=== PATIENT | male | born 1985 | race Caucasian/White ===

== ENCOUNTER 2021-04-12 16:33 | Inpatient (IN) | payer MEDICAID, SELFPAY ==
[2021-04-12 16:40] VITALS: BP 140/96; PULSE 85; RESP 18; TEMP 36.6; O2SAT 98
[2021-04-12 16:44] VITALS: BMI 22.8
--- NOTE | 2021-04-12 17:26 | PC.NURSE ---
Integumentary initial assessment: patient has bilateral tattoo sleeves on upper extremities, multiple tattoos on abdomen and chest area. One tattoo says LOVE on patient left ribs. One laceration, scabbed over on posterior back starting from mid back to above buttocks. One laceration on buttocks, scabbed over. No evidence of pressure wounds on posterior areas. States these are from when he recently had a seizure in the [place] and fell on barbed wire.
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
[2021-04-12 20:00] VITALS: BP 160/111; PULSE 74; RESP 18; TEMP 36.9; O2SAT 99
--- NOTE | 2021-04-12 20:01 | PC.NURSE ---
med nurse notified of client's b/p
[2021-04-12 21:18] VITALS: BP 160/111
[2021-04-12] MEDS: cloNIDine 0.1 mg Tablet 0.2 MG PO (21:18)
[2021-04-12] MEDS: buprenorphine-naloxone 4-1 mg Film 2 EACH SUBLINGUAL (21:19)
[2021-04-12] MEDS: gabapentin 300 mg Capsule 600 MG PO (21:19)
[2021-04-13 06:00] VITALS: BP 169/101; PULSE 62; RESP 17; TEMP 36.8; O2SAT 99
--- NOTE | 2021-04-13 06:29 | PC.NURSE ---
charge nurse notified of pt's elevated b/p
[2021-04-13 08:22] VITALS: BP 169/101
[2021-04-13] MEDS: cloNIDine 0.1 mg Tablet 0.2 MG PO ×3 (08:22→20:24)
[2021-04-13] MEDS: gabapentin 300 mg Capsule 600 MG PO ×3 (08:22→20:24)
[2021-04-13] MEDS: buprenorphine-naloxone 4-1 mg Film 2 EACH SUBLINGUAL ×2 (08:23→17:25)
[2021-04-13] MEDS: nicotine 21 mg Patch 1 PATCH TRANSDERMA (08:23)
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
--- NOTE | 2021-04-13 12:00 | NPU.GN ---
[facility] Unit Group Topic:Dice Breaker Group Activity General Mood of Group: Isaias did not attend group today. He was sleeping.
[2021-04-13] MEDS: acetaminophen 325 mg Tablet 650 MG PO (12:08)
[2021-04-13 14:00] VITALS: BP 125/75; PULSE 80; RESP 17; TEMP 36.9; O2SAT 98
[2021-04-13 16:17] VITALS: BP 125/75
[2021-04-13] MEDS: nicotine 2 mg Gum BUCCAL ×2 (17:25→21:10)
[2021-04-13] MEDS: lamoTRIgine 100 mg Tablet PO (20:24)
[2021-04-13] MEDS: trazodone 50 mg Tablet PO (21:13)
[2021-04-13 22:00] VITALS: BP 128/83; PULSE 86; RESP 18; TEMP 36.5; O2SAT 97
--- NOTE | 2021-04-14 03:52 | PC.NURSE ---
Patient came to nursing staff requesting medication to help him sleep. Trazadone was given at 2113 for sleep. Medication was effective.
[2021-04-14 06:00] VITALS: BP 115/71; PULSE 88; RESP 17; TEMP 36.6; O2SAT 98
[2021-04-14] MEDS: acetaminophen 325 mg Tablet 650 MG PO (06:36)
[2021-04-14] MEDS: nicotine 2 mg Gum BUCCAL ×2 (07:36→15:25)
[2021-04-14] MEDS: buprenorphine-naloxone 4-1 mg Film 2 EACH SUBLINGUAL ×2 (07:53→17:23)
[2021-04-14] MEDS: gabapentin 300 mg Capsule 600 MG PO ×3 (07:53→20:49)
[2021-04-14 07:54] VITALS: BP 115/71
[2021-04-14] MEDS: cloNIDine 0.1 mg Tablet 0.2 MG PO ×3 (07:54→20:48)
--- NOTE | 2021-04-14 08:12 | PC.NURSE ---
am assessment Patient is up ambulating in urena. He is alert and oriented, able to state name and day as well as month and year. He denies SI, HI, or hallucinations. Speech is clear, labile. Hr regular with pedal pulses palpated x 2, no edema noted. Lungs clear with breathing even and nonlabored. Bowel sounds active in all quads. Denies pain with urination. C/o pain in low back that is 7/10, received tylenol within last 4 hours. Skin is warm and dry.
[2021-04-14] MEDS: ibuprofen 800 mg tablet PO ×2 (08:17→08:36)
--- NOTE | 2021-04-14 11:26 | NPU.GN ---
[facility] Unit Group Topic: Thought Process General Mood of Group: Isaias did attend and participate in group. He did well and his hygiene was ok.
--- NOTE | 2021-04-14 13:42 | P.NPUPN_ITS ---
Subjective NPU Subjective: Interval history: He said that he is doing about the same. He denies any side effects from the Lamictal that he took last night. He said it might make him a little tired. His sleep was average last night. He woke up several times and does not think it was substantially different than normal. He had previously told me that trazodone gives him nightmares. He did take it last night and did not have any nightmares. He was told that it would be available if he wanted to try it again. He understands that the lamotrigine probably has not had a chance to do anything thus far. Mental Status Exam MSE Comments: This is a 35-year-old appropriate weight male who appears approximately his stated age and is in no acute distress. He is pleasant and cooperative with the evaluation. He is dressed in hospital scrubs. He has many tattoos and a full brunson. psychomotor activity is normal. Speech is at a regular rate and rhythm, normal volume, good articulation, not pressured. Alert, oriented X3 Attention and concentration appear to be normal. Memory is intact Mood is depressed. Affect is mildly dysphoric. Thought process is logical and goal-directed. Thought content: Denies auditory and visual hallucinations. No delusions or paranoia are noted. Reports suicidal ideation of wanting to hang himself. and no homicidal ideation. Fund of knowledge is average. Insight and judgment appear to be impaired. Impulse control is impaired. Cognition: Patient Appearance: Disheveled/Poor Hygiene Ability to Follow Directions: Excellent Patient Orientation (long list): Person, Place, Time and Name Comprehension Ability: No Impairment Hallucination Type: None Delusion Description: Not Present Thought Process: Appropriate Affect: Affect Description: Appropriate and Labile Behavior: Patient Behavior: Appropriate and Cooperative Speech Pattern: Appropriate and Clear Vitals/I&O/Wt Last Vital Signs Temp 97.8 F 04/14/21 06:00 Pulse 88 04/14/21 06:00 Resp 17 04/14/21 06:00 BP 115/71 04/14/21 07:54 Pulse Ox 98 04/14/21 06:00 Weight last 48 hrs Weight 68.039 kg A&P Assessment and plan (1) Anxiety: Status: Acute (2) Methamphetamine addiction: Status: Acute (3) Opiate addiction: Status: Acute (4) Marijuana abuse: Status: Acute Plan This is a 35-year-old male with a long history of drug abuse and antisocial behavior. He is unable to keep a job because of his anger problem. He now reports with suicidal ideation and homelessness. Plan: 1. Continue current medication. Gabapentin 600 mg 3 times daily Suboxone 8-2 twice daily. We will start Lamictal at 100 mg at his request he will watch carefully for a rash. 2. Continue every 15 minute checks for safety. 3. Encourage individual, group and milieu therapies. 4. Encourage sober living treatment after discharge at the highest level of care to which he is willing to commit. 5. We will monitor for safety for himself in the community prior to discharge. Involuntary Hold Information 96 Hour Hold: 96 Hour Involuntary Admission: No Attestations U Medical Necessity Statement*: Inpatient hospitalization is medically necessary and the clinically appropriate intervention at this time. We will initiate medications and make changes as indicated. Coding Level of Care Code Acute Conference Reservationist for Chelsey Gonsalez Diagnoses Anxiety F41.9 Methamphetamine addiction F15.20 Opiate addiction F11.20 Marijuana abuse F12.10
[2021-04-14 14:00] VITALS: BP 117/68; PULSE 78; RESP 18; TEMP 36.7; O2SAT 96
[2021-04-14 15:24] VITALS: BP 117/68
[2021-04-14] MEDS: hyDROXYzine 25 mg Capsule 50 MG PO (15:55)
[2021-04-14] MEDS: nicotine 4 mg lozenge MUCOUS MEM (17:23)
[2021-04-14] MEDS: trazodone 50 mg Tablet PO (20:49)
[2021-04-14] MEDS: lamoTRIgine 100 mg Tablet PO (20:49)
[2021-04-14 22:00] VITALS: BP 121/79; PULSE 76; RESP 16; TEMP 36.9; O2SAT 95
--- NOTE | 2021-04-15 03:00 | PC.NURSE ---
2048 Patient requested something to help him sleep. Trazadone 50mg po given. Medication was effective as the patient has been able to rest.
[2021-04-15 06:00] VITALS: BP 114/70; PULSE 80; RESP 18; TEMP 36.7; O2SAT 94
[2021-04-15 08:40] VITALS: BP 114/70
[2021-04-15] MEDS: buprenorphine-naloxone 4-1 mg Film 2 EACH SUBLINGUAL (08:40)
[2021-04-15] MEDS: cloNIDine 0.1 mg Tablet 0.2 MG PO ×3 (08:40→20:53)
[2021-04-15] MEDS: gabapentin 300 mg Capsule 600 MG PO ×3 (08:40→20:53)
[2021-04-15] MEDS: nicotine 21 mg Patch 1 PATCH TRANSDERMA (09:18)
[2021-04-15] MEDS: nicotine 4 mg lozenge MUCOUS MEM ×2 (09:18→15:56)
--- NOTE | 2021-04-15 10:58 | W.PM.NPUPNS ---
Subjective NPU Subjective: Interval history: He said that he is doing about the same. He denies any side effects from the Lamictal that he took last night. He said it might make him a little tired. His slept better the last 2 nights with the Lamictal and trazodone. He has been having more pain and asked about increasing the Suboxone. He was told that we could not do that but may be spreading around more would help more for the pain. He is adamant that he wants to stay clean. He does not want to go to a long term because they are drug infested. He has not been able to get in touch with his . His mother would give him the number. Mental Status Exam MSE Comments: This is a 35-year-old appropriate weight male who appears approximately his stated age and is in no acute distress. He is pleasant and cooperative with the evaluation. He is dressed in hospital scrubs. He has many tattoos and a full brunson. psychomotor activity is normal. Speech is at a regular rate and rhythm, normal volume, good articulation, not pressured. Alert, oriented X3 Attention and concentration appear to be normal. Memory is intact Mood is depressed but better. Affect is mildly dysphoric. Thought process is logical and goal-directed. Thought content: Denies auditory and visual hallucinations. No delusions or paranoia are noted. Denies current suicidal ideation.. no homicidal ideation. Fund of knowledge is average. Insight and judgment appear to be impaired. Impulse control is impaired. Cognition: Patient Appearance: Disheveled/Poor Hygiene Ability to Follow Directions: Excellent Patient Orientation (long list): Person, Place, Time and Name Comprehension Ability: No Impairment Hallucination Type: None Delusion Description: Not Present Thought Process: Appropriate Affect: Affect Description: Appropriate and Calm Behavior: Patient Behavior: Appropriate and Cooperative Speech Pattern: Appropriate and Clear Vitals/I&O/Wt Last Vital Signs Temp 98.0 F 04/15/21 06:00 Pulse 80 04/15/21 06:00 Resp 18 04/15/21 06:00 BP 114/70 04/15/21 08:40 Pulse Ox 94 04/15/21 06:00 A&P Assessment and plan (1) Anxiety: Status: Acute (2) Methamphetamine addiction: Status: Acute (3) Opiate addiction: Status: Acute (4) Marijuana abuse: Status: Acute Plan This is a 35-year-old male with a long history of drug abuse and antisocial behavior. He is unable to keep a job because of his anger problem. He now reports with suicidal ideation and homelessness. Plan: 1. Continue current medication. Gabapentin 600 mg 3 times daily Suboxone 8-2 at 7 am and 4-1 at 1300 and 2000. Continue Lamictal at 100 mg at his request he will watch carefully for a rash. 2. Continue every 15 minute checks for safety. 3. Encourage individual, group and milieu therapies. 4. Encourage sober living treatment after discharge at the highest level of care to which he is willing to commit. 5. We will monitor for safety for himself in the community prior to discharge. Involuntary Hold Information 96 Hour Hold: 96 Hour Involuntary Admission: No Attestations NPU Medical Necessity Statement*: Inpatient hospitalization is medically necessary and the clinically appropriate intervention at this time. We will initiate medications and make changes as indicated. Coding Level of Care Code Acute Water Treatment Plant Mechanic for Chelsey Gonsalez Diagnoses Anxiety F41.9 Methamphetamine addiction F15.20 Opiate addiction F11.20 Marijuana abuse F12.10
[2021-04-15 14:00] VITALS: BP 132/79; TEMP 36.7
[2021-04-15] MEDS: buprenorphine-naloxone 4-1 mg Film 1 EACH SUBLINGUAL ×2 (14:17→20:54)
[2021-04-15 20:04] VITALS: BP 133/75; PULSE 75; RESP 17; TEMP 36.3; O2SAT 97
[2021-04-15] MEDS: lamoTRIgine 100 mg Tablet PO (20:54)
[2021-04-15] MEDS: trazodone 50 mg Tablet PO (20:58)
--- NOTE | 2021-04-15 21:12 | PC.NURSE ---
Patient requested medication to help him sleep. Trazadone was given.
[2021-04-16 06:00] VITALS: BP 123/75; PULSE 76; RESP 17; TEMP 36.5; O2SAT 98
[2021-04-16] MEDS: ibuprofen 800 mg tablet PO (07:12)
--- NOTE | 2021-04-16 07:28 | P.NPUPN_ITS ---
Subjective NPU Subjective: Interval history: He is doing well but is very concerned about how he will do if he is discharged without a place to stay. He does have his 's work number now and is hopeful that she can help him find a place to live. She was not at work last night so he must wait until today to talk with her. He is optimistic that she can find a solution. He has not had any side effects from the Lamictal and trazodone. He says that he is sleeping well and feels that they are both working very well. He agrees to increase the Lamictal to 200 mg after taking it at 100 mg for 2 weeks. He will then make a decision about which one is better for him. He will consult his if possible about that decision as well. Mental Status Exam MSE Comments: This is a 35-year-old appropriate weight male who appears approximately his stated age and is in no acute distress. He is pleasant and cooperative with the evaluation. He is dressed in hospital scrubs. He has many tattoos and a full brunson. psychomotor activity is normal. Speech is at a regular rate and rhythm, normal volume, good articulation, not pressured. Alert, oriented X3 Attention and concentration appear to be normal. Memory is intact Mood is depressed but better. Affect is euthymic. Thought process is logical and goal-directed. Thought content: Denies auditory and visual hallucinations. No delusions or paranoia are noted. Denies current suicidal ideation.. no homicidal ideation. Fund of knowledge is average. Insight and judgment appear to be impaired. Impulse control is impaired. Cognition: Patient Appearance: Disheveled/Poor Hygiene Ability to Follow Directions: Excellent Patient Orientation (long list): Person, Place, Time and Name Comprehension Ability: No Impairment Hallucination Type: None Delusion Description: Not Present Thought Process: Appropriate Affect: Affect Description: Appropriate and Calm Behavior: Patient Behavior: Appropriate and Cooperative Speech Pattern: Appropriate and Clear Vitals/I&O/Wt Last Vital Signs Temp 97.7 F 04/16/21 06:00 Pulse 76 04/16/21 06:00 Resp 17 04/16/21 06:00 BP 123/75 04/16/21 06:00 Pulse Ox 98 04/16/21 06:00 A&P Assessment and plan (1) Anxiety: Status: Acute (2) Methamphetamine addiction: Status: Acute (3) Opiate addiction: Status: Acute (4) Marijuana abuse: Status: Acute Plan This is a 35-year-old male with a long history of drug abuse and antisocial behavior. He is unable to keep a job because of his anger problem. He now reports with suicidal ideation and homelessness. Plan: 1. Continue current medication. Gabapentin 600 mg 3 times daily Suboxone 8-2 at 7 am and 4-1 at 1300 and 2000. Continue Lamictal at 100 mg at his request he will watch carefully for a rash. 2. Continue every 15 minute checks for safety. 3. Encourage individual, group and milieu therapies. 4. Encourage sober living treatment after discharge at the highest level of care to which he is willing to commit. 5. We will monitor for safety for himself in the community prior to discharge. Involuntary Hold Information 96 Hour Hold: 96 Hour Involuntary Admission: No Attestations U Medical Necessity Statement*: Inpatient hospitalization is medically necessary and the clinically appropriate intervention at this time. We will initiate medications and make changes as indicated. Coding Level of Care Code Acute Sr. Director Product Management for Chelsey Gonsalez Diagnoses Anxiety F41.9 Methamphetamine addiction F15.20 Opiate addiction F11.20 Marijuana abuse F12.10
[2021-04-16] MEDS: gabapentin 300 mg Capsule 600 MG PO ×3 (08:43→20:52)
[2021-04-16] MEDS: nicotine 4 mg lozenge MUCOUS MEM ×5 (08:43→21:02)
[2021-04-16 08:44] VITALS: BP 130/76
[2021-04-16] MEDS: cloNIDine 0.1 mg Tablet 0.2 MG PO ×3 (08:44→20:52)
[2021-04-16] MEDS: buprenorphine-naloxone 4-1 mg Film 2 EACH SUBLINGUAL (10:00)
[2021-04-16] MEDS: nicotine 21 mg Patch 1 PATCH TRANSDERMA (10:52)
[2021-04-16] MEDS: buprenorphine-naloxone 4-1 mg Film 1 EACH SUBLINGUAL ×2 (12:56→20:52)
[2021-04-16 14:00] VITALS: RESP 16
[2021-04-16 15:22] VITALS: BP 130/76
--- NOTE | 2021-04-16 17:04 | PC.NURSE ---
PRN meds Patient has utilized PRN Nictotine patch and lozenges throughout shift. did give order to allow use of both and lozenges.
[2021-04-16 20:12] VITALS: BP 147/75; PULSE 87; RESP 17; TEMP 36.6; O2SAT 91
[2021-04-16 20:52] VITALS: BP 145/75
[2021-04-16] MEDS: lamoTRIgine 100 mg Tablet PO (20:52)
[2021-04-16] MEDS: trazodone 50 mg Tablet PO (20:54)
[2021-04-17 06:00] VITALS: RESP 19
[2021-04-17] MEDS: ibuprofen 800 mg tablet PO (06:10)
[2021-04-17] MEDS: acetaminophen 325 mg Tablet 650 MG PO (06:20)
[2021-04-17 09:23] VITALS: BP 145/75
[2021-04-17] MEDS: cloNIDine 0.1 mg Tablet 0.2 MG PO ×3 (09:23→20:13)
[2021-04-17] MEDS: buprenorphine-naloxone 4-1 mg Film 2 EACH SUBLINGUAL (09:23)
[2021-04-17] MEDS: nicotine 21 mg Patch 1 PATCH TRANSDERMA (09:23)
[2021-04-17] MEDS: nicotine 4 mg lozenge MUCOUS MEM ×3 (09:24→18:52)
[2021-04-17] MEDS: gabapentin 300 mg Capsule 600 MG PO ×3 (09:24→20:13)
--- NOTE | 2021-04-17 10:56 | P.NPUPN_ITS ---
Subjective NPU Subjective: Interval history: He said that he is irritable today. He does not know why. It is like that sometimes. He is pacing up and down the halls. The nurses have tried to talk with him about coping skills that it only makes him more angry. He talked with his last night. She was not working. He is optimistic that he will talk with her this evening. He thinks that it is probably the fact that he has been here and probably needs to release him at this time have a place to go that is making him irritable. He also said that he knows the clonazepam would help him and he does not really understand why we do not give it to him. Mental Status Exam MSE Comments: This is a 35-year-old appropriate weight male who appears approximately his stated age and is in no acute distress. He is irritable and not really very pleasant today. He is dressed in hospital scrubs. He has many tattoos and a full brunson. psychomotor activity is normal. Speech is at a regular rate and rhythm, normal volume, good articulation, not pressured. Alert, oriented X3 Attention and concentration appear to be normal. Memory is intact Mood is irritable. Affect is moderately dysphoric. Thought process is logical and goal-directed. Thought content: Denies auditory and visual hallucinations. No delusions or paranoia are noted. Denies current suicidal ideation.. no homicidal ideation. Fund of knowledge is average. Insight and judgment appear to be impaired. Impulse control is impaired. Cognition: Patient Appearance: Disheveled/Poor Hygiene Ability to Follow Directions: Excellent Patient Orientation (long list): Person, Place, Time and Name Comprehension Ability: No Impairment Hallucination Type: None Delusion Description: Not Present Thought Process: Appropriate Affect: Affect Description: Calm Behavior: Patient Behavior: Cooperative Speech Pattern: Clear Vitals/I&O/Wt Last Vital Signs Temp 97.8 F 04/16/21 20:12 Pulse 87 04/16/21 20:12 Resp 19 H 04/17/21 06:00 BP 145/75 04/17/21 09:23 Pulse Ox 91 04/16/21 20:12 A&P Assessment and plan (1) Anxiety: Status: Acute (2) Methamphetamine addiction: Status: Acute (3) Opiate addiction: Status: Acute (4) Marijuana abuse: Status: Acute Plan This is a 35-year-old male with a long history of drug abuse and antisocial behavior. He is unable to keep a job because of his anger problem. He now reports with suicidal ideation and homelessness. Plan: 1. Continue current medication. Gabapentin 600 mg 3 times daily Suboxone 8-2 at 7 am and 4-1 at 1300 and 2000. Continue Lamictal at 100 mg at his request he will watch carefully for a rash. Recommend increasing to 200 mg after 2 weeks at that dose 2. Continue every 15 minute checks for safety. 3. Encourage individual, group and milieu therapies. 4. Encourage sober living treatment after discharge at the highest level of care to which he is willing to commit. 5. We will monitor for safety for himself in the community prior to discharge. Involuntary Hold Information 96 Hour Hold: 96 Hour Involuntary Admission: No Attestations NPU Medical Necessity Statement*: Inpatient hospitalization is medically necessary and the clinically appropriate intervention at this time. We will initiate medications and make changes as indicated. Coding Level of Care Code Acute Audio Visual Production Specialist for Chelsey Gonsalez Diagnoses Anxiety F41.9 Methamphetamine addiction F15.20 Opiate addiction F11.20 Marijuana abuse F12.10
[2021-04-17 14:00] VITALS: BP 145/75; PULSE 87; RESP 19; TEMP 36.6; O2SAT 91
[2021-04-17 16:00] VITALS: BP 145/75
[2021-04-17] MEDS: buprenorphine-naloxone 4-1 mg Film 1 EACH SUBLINGUAL ×2 (16:00→20:13)
--- NOTE | 2021-04-17 18:33 | PC.NURSE ---
David has been in dayroom playing games with others until 1804. Patient then came to nurses station and asked if Dr had prescribed Xanax or Klonopin. When reiterated to patient that Dr had stated no, patient became agitated. Then made comment of what do I have to do, act out to get the meds. Staff offered other PRN medications available to patient but patient refused. Stated he was building on the inside and did not want to blow. Very tense in posture, raised voice. Returned to room. Initially closed room door and argued with staff about opening it. Did open door. Patient is calming at this time. Staff continuing to monitor patient closely.
[2021-04-17] MEDS: hyDROXYzine 25 mg Capsule 50 MG PO (18:52)
[2021-04-17] MEDS: lamoTRIgine 100 mg Tablet PO (20:13)
[2021-04-17] MEDS: trazodone 50 mg Tablet PO (20:23)
[2021-04-17 21:39] VITALS: BP 153/73; PULSE 91; RESP 20; TEMP 36.8; O2SAT 98
[2021-04-18 06:00] VITALS: BP 129/84; PULSE 110; RESP 20; TEMP 36.3; O2SAT 97
[2021-04-18] MEDS: ibuprofen 800 mg tablet PO (06:17)
[2021-04-18] MEDS: nicotine 4 mg lozenge MUCOUS MEM ×4 (07:38→20:40)
--- NOTE | 2021-04-18 07:53 | P.NPUPN_ITS ---
Subjective NPU Subjective: Interval history: Nurses report he has been quite irritable lately. He says that he was not able to call his yesterday because the phones were down. He again started saying that he does not understand why he cannot have clonazepam since it was created in a pharmacy and he has told us that it works for him. Since we had discussed this a couple of times previously I did not engage into the discussion on that topic again today. Mental Status Exam MSE Comments: This is a 35-year-old appropriate weight male who appears approximately his stated age and is in no acute distress. He is irritable and not really very pleasant today. He is dressed in hospital scrubs. He has many tattoos and a full brunson. He was eating breakfast in his room. psychomotor activity is normal. Speech is at a regular rate and rhythm, normal volume, good articulation, not pressured. Alert, oriented X3 Attention and concentration appear to be normal. Memory is intact Mood is irritable. Affect is moderately dysphoric. Thought process is logical and goal-directed. Thought content: Denies auditory and visual hallucinations. No delusions or paranoia are noted. Denies current suicidal ideation.. no homicidal ideation. Fund of knowledge is average. Insight and judgment appear to be impaired. Impulse control is impaired. Cognition: Patient Appearance: Appropriate Ability to Follow Directions: Excellent Patient Orientation (long list): Person, Place, Time, Name, Age, Birthday and Year Comprehension Ability: No Impairment Hallucination Type: None Delusion Description: Not Present Thought Process: Appropriate Affect: Affect Description: Appropriate Behavior: Patient Behavior: Appropriate Speech Pattern: Appropriate Vitals/I&O/Wt Last Vital Signs Temp 97.4 F L 04/18/21 06:00 Pulse 110 H 04/18/21 06:00 Resp 20 H 04/18/21 06:00 BP 129/84 04/18/21 06:00 Pulse Ox 97 04/18/21 06:00 Weight last 48 hrs Weight 76.929 kg Weight 76.929 kg A&P Assessment and plan (1) Anxiety: Status: Acute (2) Methamphetamine addiction: Status: Acute (3) Opiate addiction: Status: Acute (4) Marijuana abuse: Status: Acute (5) Antisocial personality disorder: Status: Acute (6) Suicidal ideations: Status: Acute Plan This is a 35-year-old male with a long history of drug abuse and antisocial behavior. He is unable to keep a job because of his anger problem. He now reports with suicidal ideation and homelessness. Plan: 1. Continue current medication. Gabapentin 600 mg 3 times daily Suboxone 8-2 at 7 am and 4-1 at 1300 and 2000. Continue Lamictal at 100 mg at his request he will watch carefully for a rash. Recommend increasing to 200 mg after 2 weeks at that dose 2. Continue every 15 minute checks for safety. 3. Encourage individual, group and milieu therapies. 4. Encourage sober living treatment after discharge at the highest level of care to which he is willing to commit. 5. We will monitor for safety for himself in the community prior to discharge. Involuntary Hold Information 96 Hour Hold: 96 Hour Involuntary Admission: No Attestations U Medical Necessity Statement*: Inpatient hospitalization is medically necessary and the clinically appropriate intervention at this time. We will initiate medications and make changes as indicated. 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
[2021-04-18] MEDS: gabapentin 300 mg Capsule 600 MG PO ×3 (08:35→15:59)
[2021-04-18] MEDS: nicotine 21 mg Patch 1 PATCH TRANSDERMA (11:28)
[2021-04-18 11:29] VITALS: BP 129/84
[2021-04-18] MEDS: cloNIDine 0.1 mg Tablet 0.2 MG PO ×3 (11:29→20:39)
[2021-04-18] MEDS: buprenorphine-naloxone 4-1 mg Film 2 EACH SUBLINGUAL (11:30)
[2021-04-18 14:00] VITALS: RESP 18
--- NOTE | 2021-04-18 15:27 | PC.NURSE ---
patient refused vital signs
[2021-04-18] MEDS: buprenorphine-naloxone 4-1 mg Film 1 EACH SUBLINGUAL ×2 (15:58→20:39)
[2021-04-18] MEDS: hyDROXYzine 25 mg Capsule 50 MG PO (16:41)
[2021-04-18] MEDS: OLANZapine 5 mg ODT PO (16:41)
[2021-04-18] MEDS: haloperidol 5 mg Tablet PO (18:09)
--- NOTE | 2021-04-18 19:43 | PC.NURSE ---
PATIENT'S MOOD HAS BEEN LABILE THIS EVENING. AGAIN DEMANDING BENZOS, REINFORCED THAT DR HAS DENIED STARTING THESE. TOOK PRN VISTARIL AND ZYDIS RELUCTANTLY. AGAIN DEMANDING BENZOS AND ASKING IF HE NEEDS TO BREAK SOMETHING TO GET OTHER MEDS. AGAIN ADVISED THIS WOULD NOT HAPPEN. DID AGREE AT THAT TIME TO TAKE PRN HALDOL AT 1805.
[2021-04-18] MEDS: lamoTRIgine 100 mg Tablet PO (20:39)
[2021-04-18] MEDS: trazodone 50 mg Tablet PO (20:40)
[2021-04-19 08:47] VITALS: BP 129/84
[2021-04-19] MEDS: gabapentin 300 mg Capsule 600 MG PO (08:47)
[2021-04-19] MEDS: cloNIDine 0.1 mg Tablet 0.2 MG PO (08:47)
[2021-04-19] MEDS: buprenorphine-naloxone 4-1 mg Film 2 EACH SUBLINGUAL (08:48)
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
[2021-04-19 12:25] VITALS: BP 129/84
== END 2021-04-19 12:51 | disposition home or self-care (01) | DRG 881 ==
PROVIDERS: Admitting Provider Psychiatry & Neurology Psychiatry; Visit Provider Psychiatry & Neurology Psychiatry
DX: F32.9 Major depressive disorder, single episode, unspecified (principal); F15.20 Other stimulant dependence, uncomplicated; R45.851 Suicidal ideations; F11.20 Opioid dependence, uncomplicated; Z59.00 Homelessness unspecified; Z91.51 Personal history of suicidal behavior; F90.9 Attention-deficit hyperactivity disorder, unspecified type; G40.909 Epilepsy, unspecified, not intractable, without status epilepticus; F43.10 Post-traumatic stress disorder, unspecified; F41.9 Anxiety disorder, unspecified; F12.10 Cannabis abuse, uncomplicated
CPT/HCPCS: 97150; 97165; J0573